=== PATIENT | male | born 1950 | race Caucasian/White ===

== ENCOUNTER 2018-06-26 14:10 | Emergency (ER) | payer MEDICARE, BC ==
[~2018-06-26 14:10] MED LIST: fentaNYL CITRATE INJ 50 MCG/ML AMP ONE
--- NOTE | 2018-06-26 14:31 | ED.PDOC ---
History of Present Illness - General Chief Complaint: Back Pain or Injury Stated Complaint: fell off ladder w/ back pain Time Seen by Provider: 06/26/18 14:22 Source: patient Exam Limitations: no limitations - History of Present Illness Initial Comments: Oswaldo Whitney 67 y/o male brought by EMS to ER patient stated the ladder he was standing on slipped then fell out of it about 4 feet above ground then landed on his back on the ladder.His friend witnessed incident stating patient was able to get up and get some tylenol but afterwards had intense sharp shooting pains on his back decided to call ambulance since he had also back surgery in the past.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 Occurred: just prior to arrival Severity: moderate Pain Location: back Method of Injury: fall Improving Factors: rest Worsening Factors: movement Loss of Consciousness: no loss of consciousness Associated Symptoms (Fall): other - see hpi Allergies/Adverse Reactions: Allergies Shellfish Allergy Allergy (Verified 06/26/18 15:24) Hives Sulfa Antibiotics Allergy (Verified 06/26/18 15:24) Hives Home Medications: Ambulatory Orders Acetamin W/Cod #3 Tab [Tylenol w/CODEINE #3] 1 ea PO Q4HR PRN #20 tab 06/26/18 Atorvastatin Calcium 40 mg PO DAILY 06/26/18 Carisoprodol [Soma] 250 mg PO TID #20 tab 06/26/18 Insulin Glargine [Toujeo Solostar] 0 unit SC BEDTIME 06/26/18 Pantoprazole Sodium 40 mg PO DAILY 06/26/18 Tamsulosin HCl 0.4 mg PO DAILY 06/26/18 Trospium Chloride 20 mg PO BID 06/26/18 Review of Systems - Review of Systems Constitutional: States: no symptoms reported EENTM: States: no symptoms reported Respiratory: States: no symptoms reported Cardiology: States: no symptoms reported Gastrointestinal/Abdominal: States: no symptoms reported Genitourinary: States: no symptoms reported Musculoskeletal: States: see HPI, back pain Skin: States: see HPI Neurological: States: no symptoms reported Past Medical History (General) - Patient Medical History Hx Diabetes: Yes Surgical History: other - back,rotator cuff,knee, Family Medical History - Family History Father Living Status: Age at (years of age): 77 Cause of : METs Hx Family Stroke: Yes - mom Hx Family Cancer: Yes - Prostate-dad Physical Exam - Physical Exam General Appearance: Agitated, No apparent distress Head Injury: no evidence of injury Eye Exam: bilateral normal ENT Exam: hearing grossly normal, no evidence of ENT injury, no dental injury Neck Exam: non-tender, full range of motion, normal alignment, normal inspection Cardiovascular/Respiratory: no M/R/G, normal peripheral pulses, no JVD Gastrointestinal/Abdominal: normal bowel sounds, non tender, soft, no organomegaly Back Exam: no CVA tenderness, muscle spasm, vertebral tenderness Extremity Exam: no evidence of injury, no pedal edema Neurologic: alert, oriented x 3 Skin Exam: normal color, warm/dry - Leopold Coma Score Best Eye Response (Ghassan): (4) open spontaneously Best Verbal Response (Ghassan): (5) oriented Best Motor Response (Ghassan): (6) obeys commands Ghassan Total: 15 Progress - Progress Progress: 06/26/18 16:10 Vital Signs - 8 hr 06/26/18 14:10 Temperature 98.9 F Pulse Rate [ 87 Left Radial] Respiratory 18 Rate Blood Pressure 140/100 [Left Arm] O2 Sat by Pulse 91 L Oximetry - EKG/XRAY/CT CT Ordered: Yes - thoracic/lumbar-no acute fracture see full report records Departure - Departure Clinical Impression: Back pain due to injury Fall from ladder Qualifiers: Encounter type: initial encounter Qualified Code(s): W11.XXXA - Fall on and from ladder, initial encounter Contusion, back Qualifiers: Encounter type: initial encounter Laterality: unspecified laterality Qualified Code(s): S20.229A - Contusion of unspecified back wall of thorax, initial encounter Time of Disposition: 16:24 Disposition: Discharge to Home or Self Care Condition: Fair Departure Forms: ED Discharge - Pt. Copy, Patient Portal Self Enrollment Instructions: Contusion (DC) Prescriptions: Acetamin W/Cod #3 Tab [Tylenol w/CODEINE #3] 1 ea PO Q4HR PRN #20 tab PRN Reason: Pain Carisoprodol [Soma] 250 mg PO TID #20 tab Home Medications: Ambulatory Orders Acetamin W/Cod #3 Tab [Tylenol w/CODEINE #3] 1 ea PO Q4HR PRN #20 tab 06/26/18 Atorvastatin Calcium 40 mg PO DAILY 06/26/18 Carisoprodol [Soma] 250 mg PO TID #20 tab 06/26/18 Insulin Glargine [Toujeo Solostar] 0 unit SC BEDTIME 06/26/18 Pantoprazole Sodium 40 mg PO DAILY 06/26/18 Tamsulosin HCl 0.4 mg PO DAILY 06/26/18 Trospium Chloride 20 mg PO BID 06/26/18 Additional Instructions: Follow up with primary Md 28 June 2018 for recheck
[2018-06-26] MEDS ORDERED: MORPHINE SULFATE INJ 10 MG/ML VIAL IM ONE ×2 (15:53→17:44)
[2018-06-26] MEDS ORDERED: METHOCARBAMOL 750 MG TAB PO ONE (15:53)
--- NOTE | 2018-06-26 15:54 | CT ---
CT LUMBAR SPINE WITHOUT CONTRAST. 06/26/2018 CLINICAL HISTORY: Back after fall COMPARISON: None. TECHNIQUE: Axial 2.[address] imaging of the lumbar spine performed. Reformatted coronal and sagittal images obtained. No contrast utilized. A dose reduction technique was utilized. FINDINGS: Normal lumbar lordosis. Vertebral body height is maintained. There is no subluxation. There is chest the jugular the sacral fusion L4-S1 with anterior interbody fusion. There is vacuum disc at L3-S1. There is no spinal canal stenosis. There is degenerative endplate change and facet arthropathy which contributes to moderate bilateral foraminal stenosis from L3 to S1. No fracture within the posterior elements. The sacrum appears intact. Posterior iliac bones appear intact. There is bilateral lower lobe subpleural atelectasis. Normal caliber abdominal aorta with mild atherosclerosis. Bilateral renal pelvic calculi with no evidence of hydronephrosis. Left circumaortic renal vein noted. IMPRESSION: 1. Diffuse lower thoracic and lumbar spondylosis. Postoperative lumbosacral changes. Multilevel degenerative foraminal stenosis. No acute fracture or subluxation. 2. Nonobstructing bilateral nephroliths. Electronically signed by: Pebbles Hernandes DO 06/26/2018 3:51 PM CDT
--- NOTE | 2018-06-26 16:00 | CT ---
CT THORACIC SPINE WITHOUT CONTRAST. 06/26/2018 CLINICAL HISTORY: Pain after fall off ladder. COMPARISON: None. TECHNIQUE: Axial 2.[address] imaging of the thoracic spine performed. Reformatted coronal and sagittal images obtained. No contrast utilized. A dose reduction technique was utilized. FINDINGS: Normal thoracic kyphotic alignment. Vertebral body height is maintained throughout the thoracic spine. There is multilevel benign dystrophic calcifications. Scattered vacuum disc changes within the mid thoracic disc spaces. Multilevel mild endplate Schmorl's nodes. There is moderate bony hypertrophy throughout the lumbar spine endplates with ligamentous ossification. No paraspinal edema. No spinal canal stenosis. The neuroforamina appear patent bilaterally at all levels. Intact posterior elements. Within the included thorax, there is bilateral lower lobe subpleural atelectasis. Normal caliber thoracic aorta. No mediastinal adenopathy. Normal appearance of the central airways. There is a small hiatal hernia present. Unremarkable included thyroid. Within the upper retroperitoneal region, there are bilateral nonobstructing renal calculi. The largest are 6 mm. IMPRESSION: 1. Generalized thoracic spondylosis. No acute fracture or subluxation. 2. Small hiatal hernia. 3. No evidence of the bilateral nephroliths. Electronically signed by: Pebbles Hernandes DO 06/26/2018 3:57 PM CDT
[2018-06-26] MEDS ORDERED: HYDROcodone 10MG/APAP 325MG 1 EA TAB PO ONE (17:44)
[2018-06-26 18:19] VITALS: BP 138/90; TEMP 98.4; O2SAT 95
== END 2018-06-26 18:21 | disposition home or self-care (01) ==
LOC: ER 14:10
DX: S20.229A Contusion of unspecified back wall of thorax, initial encounter (principal); E11.9 Type 2 diabetes mellitus without complications; Z98.890 Other specified postprocedural states; Z79.4 Long term (current) use of insulin; Z79.899 Other long term (current) drug therapy; Z88.2 Allergy status to sulfonamides; Z91.013 Allergy to seafood; W11.XXXA Fall on and from ladder, initial encounter; Y92.9 Unspecified place or not applicable
CPT/HCPCS: 72128; 72131; J2270